=== PATIENT | male | born 1990 | race Caucasian/White ===

== ENCOUNTER 2020-05-16 10:14 | Emergency (ER) | payer MEDICAID ==
[~2020-05-16] VITALS: Ht 170.2 cm; Wt 65.8 kg
--- NOTE | 2020-05-16 10:14 | NUR ---
PATIENT BIBA [facility] ALS TO ER [facility]
[2020-05-16 10:20] VITALS: BP 128/78
--- NOTE | 2020-05-16 10:29 | NUR ---
MARTHA COMING FROM [facility]. ONSET OF [place] 30 MINS PRIOR TO ALS ARRIVAL. DENIES ANY DRUG OR ALCOHOL USE. PER EMS, PT UNABLE TO TALK- COMMUNICATION DONE VIA WRITING. PT WAS SEEN IN [facility] DAYS PRIOR FOR SAME SYMPTOM. EN ROUTE TO ED, PT GIVEN 50MG BENADRYL WHICH RELIEVED SPASM. IN ED, PT AOX4. ABLE TO SPEAK CLEARLY. DOES NOT APPEAR TO BE IN ANY DISTRESS. PMH: PSYCH MEDS: PARRISH JONES
--- NOTE | 2020-05-16 12:00 | NUR ---
PROVIDED PT WITH SANDWICH PER REQUEST
--- NOTE | 2020-05-16 12:30 | NUR ---
ATTEMPTED TO CALL [employer] TO OBTAIN BUS PASS FOR PT. NO ANSWER.
--- NOTE | 2020-05-16 12:35 | NUR ---
PT INFORMED TO WAIT IN LOBBY AFTER D/C AND I WILL KEEP CALLING [employer] FOR BUS PASS
[2020-05-16 12:39] VITALS: BP 128/78
--- NOTE | 2020-05-16 12:39 | NUR ---
Patient discharged with v/s stable. Written and verbal after care instructions given and explained. Patient alert, oriented and verbalized understanding of instructions. Ambulatory with steady gait. All questions addressed prior to discharge. ID band removed. Patient advised to follow up with PMD. Rx of BENADRYL given. Patient educated on indication of medication including possible reaction and side effects. Opportunity to ask questions provided and answered.
== END 2020-05-16 12:39 | disposition home or self-care (01) ==
LOC: MED 10:14
DX: G24.09 Other drug induced dystonia (principal); T43.4X5A Adverse effect of butyrophenone and thiothixene neuroleptics, initial encounter; Z88.0 Allergy status to penicillin; Y92.89 Other specified places as the place of occurrence of the external cause
CPT/HCPCS: 99283

== ENCOUNTER 2020-05-16 13:29 | Emergency (ER) | payer MEDICAID ==
[~2020-05-16] VITALS: Ht 170.2 cm; Wt 65.8 kg
[2020-05-16 13:44] VITALS: BP 113/71
--- NOTE | 2020-05-16 13:49 | NUR ---
PATIENT TRIAGED. NOT IN ACUTE DISTRESS. ASKED TO WAIT IN LOBBY TO BE SEEN BY MD.
[2020-05-16] MEDS ORDERED: diphenhydrAMINE 50 MG/ML VIAL IM ONE (14:05)
[2020-05-16 15:07] VITALS: BP 113/71
--- NOTE | 2020-05-16 15:08 | NUR ---
Patient discharged with v/s stable. Written and verbal after care instructions given and explained. Patient verbalized understanding. Ambulatory with steady gait. All questions addressed prior to discharge. Advised to follow up with PMD.
== END 2020-05-16 15:08 | disposition home or self-care (01) ==
LOC: MED 13:29
DX: G24.9 Dystonia, unspecified (principal); Z88.0 Allergy status to penicillin
CPT/HCPCS: 96372; 99283; J1200